=== PATIENT | female | born 1955 | race Caucasian/White ===

== ENCOUNTER 2019-06-05 06:32 | Day surgery (SDC) | payer MEDICARE, OTHER ==
[2019-06-05] MEDS ORDERED: Propofol 200 MG/20 ML SDV IV ONE (06:33)
[2019-06-05] MEDS ORDERED: Lidocaine 2% 5 ML SDV INJECT ONE (06:33)
[2019-06-05] MEDS ORDERED: Ondansetron 4 MG/2 ML SDV IVPUSH ONE (06:33)
[2019-06-05] MEDS ORDERED: Sodium Chloride 0.9% 10 ML Syringe FLUSH PRN (06:45)
[2019-06-05] MEDS ORDERED: Lactated Ringers 1,000 ML IV SCH (06:45)
--- NOTE | 2019-06-05 08:28 | PCM.OPNOTE ---
- General Post-Op/Procedure Note Date of Surgery/Procedure: 06/05/19 Operative Procedure(s): c scope with bx Findings: transverse colon polyp x3 rectal polyp x4 Pre Op Diagnosis: + cologuard Post-Op Diagnosis: transverse colon polyp x3. rectal polyp x4 Anesthesia Technique: MAC Primary Surgeon: Tomas Weber Anesthesia Provider: Aida Wilson Pathology: transverse colon polyp x3 rectal polyp x4 Complications: None Condition: Good Free Text/Narrative:: see dictation
--- NOTE | 2019-06-05 11:41 | OR ---
DATE OF OPERATION: 06/05/2019 SURGEON: Tomas Weber MD PROCEDURE PERFORMED: Colonoscopy with cold loop and cold forceps biopsy. PREOPERATIVE DIAGNOSIS: Positive Cologuard. POSTOPERATIVE DIAGNOSES: Transverse colon polyps x3, rectal polyps x4. INDICATIONS FOR PROCEDURE: This is a 63-year-old white female who is referred with a recent finding of a positive Cologuard result. She was offered and accepted colonoscopy. DESCRIPTION OF PROCEDURE: After an excellent IV sedation was administered, digital rectal exam was performed. No marked abnormality was noted. She did have a small external tags with no clinical significance. The flexible colonoscope was inserted and advanced to the cecum. The prep was excellent. The following findings were noted. Ascending colon was unremarkable. Transverse colon, at the distal transverse colon, there were 3 small polyps biopsied with cold loop and cold forceps biopsied and submitted in one container. Descending colon was unremarkable. Sigmoid occasional diverticula. Rectum, 4 hyperplastic appearing polyps were biopsied and submitted in one container. The patient tolerated the procedure well and was taken to recovery. Results by letter. /[id number] /MODL
== END 2019-06-05 09:20 | disposition home or self-care (01) ==
LOC: FB.SDS 06:32
PROVIDERS: ATTEND Surgery
DX: D12.3 Benign neoplasm of transverse colon (principal); K62.1 Rectal polyp; K64.4 Residual hemorrhoidal skin tags; K57.30 Diverticulosis of large intestine without perforation or abscess without bleeding; I11.9 Hypertensive heart disease without heart failure; I25.10 Atherosclerotic heart disease of native coronary artery without angina pectoris; Z79.899 Other long term (current) drug therapy; Z88.6 Allergy status to analgesic agent
CPT/HCPCS: 00811; 45380; J7120; 88305; J2001; J2405; J2704